=== PATIENT | female | born 1985 | race Caucasian/White ===

== ENCOUNTER 2018-10-07 21:21 | Emergency (ER) | payer OTHER ==
[~2018-10-07] VITALS: Ht 160 cm; Wt 66.8 kg
[~2018-10-07 21:21] MED LIST: ACET1TAB34 PO; ACET1TAB38 PO; ALBU6.7H IH; BENZ100C PO; IBUP-1131 PO; PRED20TA PO
--- NOTE | 2018-10-07 21:31 | ER.PDOC ---
General Chief Complaint: Requesting Medical Care Stated Complaint: RASH Time seen by MD: 21:30 Source: patient Exam Limitations: no limitations History of Present Illness Initial Comments rash for two days, started on left neck looked like pimple and now is more red and is weeping, patient also has sore throat and was exposed to strep and now has a rash on back and abdomen and arms that is itching, she took benadryl which did not help, no mer or difficulty swallowing. Allergies: Coded Allergies: amoxicillin (Verified Allergy, Unknown, 08/13/16) tramadol (Verified Allergy, Unknown, BURNING TO LIPS AND THROAT, 05/16/14) Home Meds Active Scripts Acetaminophen With Codeine (TYLENOL-COD #4 TABLET) 1 Each Tablet, 1 EACH PO TID PRN for PAIN, #20 TAB 0 Refills Prov:DILMA BRICEÑO MD 10/29/16 Benzonatate (TESSALON PERLE) 100 Mg Capsule, 100 MG PO TID for COUGH, #15 CAP 0 Refills Prov:DILMA BRICEÑO MD 10/29/16 Prednisone (PREDNISONE) 20 Mg Tablet, 40 MG PO DAILY, #8 TAB 0 Refills Prov:DILMA BRICEÑO MD 10/29/16 Albuterol Sulfate (PROVENTIL HFA) 6.7 Gm Hfa.aer.ad, 2 PUFF IH Q6HR PRN for SHORTNESS OF BREATH, #1 INHALER 1 Refill Prov:DILMA BRICEÑO MD 10/29/16 Reported Medications Ibuprofen (IBUPROFEN) 800 Mg Tablet, 800 MG PO Q8HR, TABLET 05/16/14 Past Medical History Medical History: no pertinent history Surgical History: Social History Drug Use: marijuana Constitutional: denies fever EENTM: denies eye pain Respiratory: denies cough, denies shortness of breath, denies SOB with exertion Cardiovascular: denies chest pain, denies irregular heart rate Gastrointestinal: denies abdomen distended, denies abdominal pain Genitourinary: denies dysuria, denies discharge Skin: rash Psychiatric/Neurological: denies anxiety, denies numbness Endocrine: denies excessive sweating Hematologic/Lymphatic: denies blood clots Physical Exam General Appearance: alert, no distress Skin: other Location: other Character: papular Extremities: non-tender EENT: eyes nml inspection, other Neck: trachea midline, no swelling Respiratory: no resp. distress, breath sounds nml CVS: reg. rate & rhythm, heart sounds nml Abdomen: non-tender NEURO/PSYCH: CN's nml as tested, motor nml Comments patient has what appears to be an insect bite on the left neck that is weeping and is approx the size of a quarter, no fluctuance or crepitus, she has pharyngeal erythema without signs of abscess, ant and post lymphadenopathy, there is a papular rash on her abdomen and back there is no urticaria no petechia or purpura. Departure Time of Disposition: 21:41 Disposition: HOME, SELF-CARE Impression: Primary Impression: Pharyngitis Additional Impression: Acute dermatitis Condition: Stable Patient Instructions: Contact Dermatitis, Insect Bite, Viral and Bacterial Pharyngitis Referrals: PCP,UNKNOWN (PCP) PRIMARY CARE PROVIDER Duration or Time Spent with Pa: 15 JOE BRITT MD Oct 07, 2018 21:30
[2018-10-07 21:33] VITALS: BP 114/69
--- NOTE | 2018-10-07 21:36 | NUR ---
ARRIVAL PT ARRIVED TO ED VIA POA C/O A RASH THAT STARTED TWO DAYS AGO. PT DENIES EATING ANYTHING NEW, OR INTRODUCING ANYTHING NEW INTO HER DAILY ROUTINE THAT COULD OF CAUSED THE RASH. REDNESS NOTED TO LOWER BACK, ALONG WITH A RED AREA THE SIZE OF A JUS TO LEFT SIDE OF NECK. PT STATES SHE HAS EXTREME ITCHING AND OTC MEDICINE HAS NOT HELPED.
[2018-10-07 21:56] VITALS: BP 114/69
== END 2018-10-07 21:51 | disposition home or self-care (01) ==
LOC: ER 21:21
DX: L30.9 Dermatitis, unspecified (principal); J02.9 Acute pharyngitis, unspecified; F12.10 Cannabis abuse, uncomplicated; Z88.1 Allergy status to other antibiotic agents; Z88.6 Allergy status to analgesic agent; Z79.899 Other long term (current) drug therapy
CPT/HCPCS: 99283

== ENCOUNTER 2018-10-23 19:49 | Emergency (ER) | payer OTHER ==
[~2018-10-23] VITALS: Ht 157.5 cm; Wt 68.5 kg
[2018-10-23 20:29] VITALS: BP 129/75
--- NOTE | 2018-10-23 21:41 | ER.PDOC ---
General Chief Complaint: Requesting Medical Care Stated Complaint: BODY RASH Time seen by MD: 21:27 Source: patient Exam Limitations: no limitations History of Present Illness Initial Comments Pt with rash x 1 month, started on her neck, now is diffuse. Seen x3 for this same thing, has tried multiple meds incl. steroids and creams. Timing/Duration: other (1 month) Severity: severe Location: generalized Quality: itchy Identified Cause: no Prior symptoms/Treatment: No Similar symptoms previous; Recenly Seen, Treated by Doctor; No Recently Hospitalized Allergies: Coded Allergies: amoxicillin (Verified Allergy, Unknown, 08/13/16) tramadol (Verified Allergy, Unknown, BURNING TO LIPS AND THROAT, 05/16/14) Home Meds Active Scripts Acetaminophen With Codeine (TYLENOL-COD #4 TABLET) 1 Each Tablet, 1 EACH PO TID PRN for PAIN, #20 TAB 0 Refills Prov:DILMA BRICEÑO MD 10/29/16 Benzonatate (TESSALON PERLE) 100 Mg Capsule, 100 MG PO TID for COUGH, #15 CAP 0 Refills Prov:DILMA BRICEÑO MD 10/29/16 Prednisone (PREDNISONE) 20 Mg Tablet, 40 MG PO DAILY, #8 TAB 0 Refills Prov:DILMA BRICEÑO MD 10/29/16 Albuterol Sulfate (PROVENTIL HFA) 6.7 Gm Hfa.aer.ad, 2 PUFF IH Q6HR PRN for SHORTNESS OF BREATH, #1 INHALER 1 Refill Prov:DILMA BRICEÑO MD 10/29/16 Reported Medications Ibuprofen (IBUPROFEN) 800 Mg Tablet, 800 MG PO Q8HR, TABLET 05/16/14 Past Medical History Medical History: other (shingles) Surgical History: , tubal Social History Drug Use: marijuana EENTM: no symptoms reported Cardiovascular: no symptoms reported Gastrointestinal: no symptoms reported Musculoskeletal: no symptoms reported Skin: see HPI Psychiatric/Neurological: no symptoms reported Hematologic/Lymphatic: no symptoms reported All Other Systems: Reviewed and Negative Physical Exam General Appearance: alert, no distress Skin: warm/dry, skin rash (scattered, slightly raised lesions with excoriations. Irregular in shape, with some coalescence. + easily blanching. Non -tender, with slight dry appearance) Location: generalized Character: papular With: rough texture Extremities: non-tender EENT: lips/gums nml Neck: trachea midline Respiratory: no resp. distress CVS: reg. rate & rhythm, heart sounds nml Abdomen: non-tender NEURO/PSYCH: oriented x 3 Results/Orders Results/Orders Orders - ZULEYMA DAVIDSON DO Cbc With Auto Diff (10/23/18 21:38) Comprehensive Metabolic Panel (10/23/18 21:38) C-Reactive Protein (10/23/18 21:38) Progress Progress Pt has already been on steroids, noth oral and topical, as well as Benadryl and Atarax. Will neeed skin biopsy at this point. My be pityriasis, as it began with one single spot, but does not have classic distribution for this. Pt says she will seek f/u with skin biopsy, continue her meds. Departure Time of Disposition: 22:52 Disposition: 01 HOME, SELF-CARE Impression: Primary Impression: Rash in adult Condition: Stable Referrals: DILMA BRICEÑO MD (PCP) PRIMARY CARE PROVIDER Duration or Time Spent with Pa: 25 ZULEYMA DAVIDSON DO Oct 23, 2018 21:41
[2018-10-23 21:51] LABS: BASOPHIL % 0.2 % (0.0-0.2); EOSINOPHIL # 0.4 10^3/uL (0.0-0.2); EOSINOPHIL % 3.7 % (0.0-5.0); HEMOGLOBIN 13.3 g/dL (12.0-15.0); LYMPHOCYTES # 2.2 10^3/uL (1.0-4.8); LYMPHOCYTES % 19.8 % (24.0-44.0); MEAN CELL HGB 32.5 pg (26-34); MEAN CELL HGB CONCENTRATION 33.8 g/dL (33-37); MEAN CORP VOLUME 96.3 fL (78-100); MEAN PLATELET VOLUME 10.9 fL (7.8-11.0); MONOCYTES # 0.8 10^3/uL (0.3-0.8); MONOCYTES % 7.3 % (5.0-12.0); NEUTROPHIL # 7.7 10^3/uL (1.8-7.7); NEUTROPHILS % 68.7 % (41.0-85.0); RED CELL DISTRIBUTION WIDTH 12.9 % (11.5-14.5); WHITE BLOOD CELL 11.2 10^3/uL (4.5-11.0)
[2018-10-23 22:17] LABS: CALCIUM 8.9 mg/dL (8.4-10.5); CARBON DIOXIDE 26.9 mmol/L (20.0-32)
[2018-10-23 23:06] VITALS: BP 116/72
[2018-10-23 23:39] VITALS: BP 116/72
== END 2018-10-23 23:13 | disposition home or self-care (01) ==
LOC: ER 19:49
DX: R21 Rash and other nonspecific skin eruption (principal); F12.10 Cannabis abuse, uncomplicated; Z79.899 Other long term (current) drug therapy; Z88.0 Allergy status to penicillin; Z88.8 Allergy status to other drugs, medicaments and biological substances; Z98.51 Tubal ligation status
CPT/HCPCS: 36415; 80053; 85025; 86140; 99283

== ENCOUNTER 2019-02-09 21:51 | Emergency (ER) | payer OTHER ==
[~2019-02-09] VITALS: Ht 157.5 cm; Wt 67.6 kg
[2019-02-09 22:03] VITALS: BP 117/74
[2019-02-09 23:21] VITALS: BP 122/74
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
--- NOTE | 2019-02-09 23:48 | DIREP ---
PROCEDURE:XRAY ANKLE MIN 3VWS-LT COMPARISON:None. INDICATIONS:FALL FINDINGS: BONES:No visible fracture. JOINTS:Ankle mortise symmetric. SOFT TISSUES:Normal. OTHER:No additional findings. CONCLUSION:No acute osseous or joint space abnormality seen. Dictated by: Angel Waterman M.D. on 02/09/2019 at 11:46 PM
--- NOTE | 2019-02-09 23:49 | DIREP ---
PROCEDURE:XRAY FOOT MIN 3 VWS-LT COMPARISON:[facility], , XRAY ANKLE MIN 3VWS-LT, 02/09/2019, 10:51 PM. INDICATIONS:FALL FINDINGS: BONES:No visible fracture. JOINTS:Lisfranc alignment within normal limits. SOFT TISSUES:Normal. OTHER:No additional findings. CONCLUSION:No acute osseous or joint space abnormality seen. Dictated by: Angel Waterman M.D. on 02/09/2019 at 11:47 PM
[2019-02-10] MEDS ORDERED: TORADOL IM STA (00:02)
[2019-02-10] MEDS ORDERED: TORADOL ONE (00:14)
--- NOTE | 2019-02-10 00:20 | ER.PDOC ---
General Chief Complaint: Extremities Stated Complaint: POSS BROKEN TOE Time seen by MD: 00:17 Source: patient Exam Limitations: no limitations History of Present Illness Initial Comments Left foot pain from hitting it against a couch. Onset: just prior to arrival, yesterday Where: home Severity: moderate Modifying Factors: pain on movement Allergies: Coded Allergies: latex (Verified Allergy, Severe, WHEEZING, 02/09/19) amoxicillin (Verified Allergy, Unknown, 08/13/16) tramadol (Verified Allergy, Unknown, BURNING TO LIPS AND THROAT, 05/16/14) Home Meds Active Scripts Acetaminophen With Codeine (TYLENOL-COD #4 TABLET) 1 Each Tablet, 1 EACH PO TID PRN for PAIN, #20 TAB 0 Refills Prov:DILMA BRICEÑO MD 10/29/16 Benzonatate (TESSALON PERLE) 100 Mg Capsule, 100 MG PO TID for COUGH, #15 CAP 0 Refills Prov:DILMA BRICEÑO MD 10/29/16 Prednisone (PREDNISONE) 20 Mg Tablet, 40 MG PO DAILY, #8 TAB 0 Refills Prov:DILMA BRICEÑO MD 10/29/16 Albuterol Sulfate (PROVENTIL HFA) 6.7 Gm Hfa.aer.ad, 2 PUFF IH Q6HR PRN for SHORTNESS OF BREATH, #1 INHALER 1 Refill Prov:DILMA BRICEÑO MD 10/29/16 Reported Medications Ibuprofen (IBUPROFEN) 800 Mg Tablet, 800 MG PO Q8HR, TABLET 05/16/14 Past Medical History Medical History: asthma Surgical History: LMP (females 10-50): this week Social History Smoking: non-smoker Alcohol Use: rarely Drug Use: none Review of Systems Constitutional: no symptoms reported EENTM: no symptoms reported Respiratory: no symptoms reported Cardiovascular: no symptoms reported Musculoskeletal: see HPI All Other Systems: Reviewed and Negative Physical Exam General Appearance: Alert, No Apparent Distress Foot: tenderness (left distal foot), ecchymosis Gait: limited by pain Neuro: sensation nml, motor nml Vascular: no vascular compromise Tendons: tendon function nml Leg/Knee/Thigh: uninjured above ankle Head/ENT: nml inspection, pharynx nml Neck/Back: nml inspection, non-tender Resp/CVS: no resp distress Abdomen: non-tender, no organomegaly Results/Orders Results/Orders Orders - PAM PEREZ MD Xr Foot Lt (02/09/19 22:14) Xr Ankle 3v Lt (02/09/19 22:14) Ketorolac Tromethamine (Toradol) (02/10/19 00:02) Ketorolac Tromethamine (Toradol) (02/10/19 00:14) Vital Signs Date Time Temp Pulse Resp B/P (MAP) Pulse Ox O2 Delivery O2 Flow Rate FiO2 02/09/19 22:03 98.7 80 18 99 Room Air 02/09/19 22:03 98.7 80 18 02/09/19 22:03 98.7 80 18 117/74 (88) 99 Room Air EKG/XRAY/CT/US XRAY Comments: No acute abnormality on X rays of left foot Course Sepsis Screening Results: Posi: POSITIVE SEPSIS RISK Duration or Total Time Spent w: 25 Vitals & review Data Vital Sign - Last 24 Hours 02/09/19 02/09/19 02/09/19 22:03 22:03 22:03 Temp 98.7 98.7 98.7 Pulse 80 80 80 Resp 18 18 18 B/P (MAP) 117/74 (88) Pulse Ox 99 99 O2 Delivery Room Air Room Air Sepsis Infection Criteria Pres: None O2 Sat by Pulse Oximetry: 99 Departure Time of Disposition: 00:19 Disposition: 01 HOME, SELF-CARE Impression: Primary Impression: Injury of foot, left Condition: Stable Referrals: DILMA BRICEÑO MD (PCP) PRIMARY CARE PROVIDER Additional Instructions: Ice Diclofenac F/U with PCP next week Duration or Time Spent with Pa: 45 mins Problem Qualifiers Primary Impression: Injury of foot, left Encounter type: initial encounter Qualified Codes: S99.922A - Unspecified injury of left foot, initial encounter PAM PEREZ MD Feb 10, 2019 00:20
[2019-02-10 00:30] VITALS: BP 103/65
[2019-02-10 00:42] VITALS: BP 103/65
== END 2019-02-10 00:41 | disposition home or self-care (01) ==
LOC: ER 21:51
DX: S90.32XA Contusion of left foot, initial encounter (principal); J45.909 Unspecified asthma, uncomplicated; Z79.899 Other long term (current) drug therapy; Z88.0 Allergy status to penicillin; Z91.040 Latex allergy status; Z88.6 Allergy status to analgesic agent; Z88.8 Allergy status to other drugs, medicaments and biological substances; W22.8XXA Striking against or struck by other objects, initial encounter; Y93.89 Activity, other specified; Y92.098 Other place in other non-institutional residence as the place of occurrence of the external cause; Y99.8 Other external cause status
CPT/HCPCS: 73610; 73630; 96372; 99284; J1885

== ENCOUNTER 2019-02-16 08:37 | Emergency (ER) | payer OTHER ==
[~2019-02-16] VITALS: Ht 160 cm; Wt 56.7 kg
[2019-02-16 08:42] VITALS: BP 114/76
[2019-02-16] MEDS ORDERED: MOTRIN ONE (08:43)
[2019-02-16] MEDS ORDERED: MOTRIN PO STA (08:43)
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
--- NOTE | 2019-02-16 08:56 | NUR ---
CAT SCAN PATIENT AMBULATORY TO CAT SCAN WITH FRANKI FROM RADIOLOGY.
--- NOTE | 2019-02-16 09:05 | NUR ---
CAT SCAN PATIENT BACK FROM CAT SCAN.
[2019-02-16 09:14] VITALS: BP 106/74
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
--- NOTE | 2019-02-16 09:53 | NUR ---
Pain level 2/10, no other c/o.
[2019-02-16 10:10] VITALS: BP 116/76
== END 2019-02-16 10:07 | disposition home or self-care (01) ==
LOC: EDUNIT# 08:37 → ER 08:37 → EDBD 08:37 → ER 10:07
DX: S20.219A Contusion of unspecified front wall of thorax, initial encounter (principal); S80.811A Abrasion, right lower leg, initial encounter; S80.812A Abrasion, left lower leg, initial encounter; J45.909 Unspecified asthma, uncomplicated; Z79.899 Other long term (current) drug therapy; Z88.0 Allergy status to penicillin; Z88.8 Allergy status to other drugs, medicaments and biological substances; V89.2XXA Person injured in unspecified motor-vehicle accident, traffic, initial encounter; Y92.410 Unspecified street and highway as the place of occurrence of the external cause; Y93.89 Activity, other specified; Y99.8 Other external cause status
CPT/HCPCS: 71250; 99284

== ENCOUNTER → 2019-02-19 | Outpatient (CLI) | payer OTHER ==
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
== END | disposition home or self-care (01) ==
LOC: RAD 16:10
PROVIDERS: ATTEND Nurse Practitioner Family
DX: S20.219A Contusion of unspecified front wall of thorax, initial encounter (principal); X58.XXXA Exposure to other specified factors, initial encounter; Y93.89 Activity, other specified; Y92.89 Other specified places as the place of occurrence of the external cause; Y99.8 Other external cause status
CPT/HCPCS: 71046

== ENCOUNTER 2019-03-03 23:33 | Emergency (ER) | payer OTHER ==
[~2019-03-03] VITALS: Ht 160 cm; Wt 66.7 kg
[2019-03-03] MEDS ORDERED: ZOFRAN ODT ONE (23:46)
[2019-03-03 23:54] VITALS: BP 136/72
[2019-03-04] MEDS ORDERED: TRIPLE ANTIBIOTIC OINTMENT TP ONE (00:06)
[2019-03-04] MEDS ORDERED: ADACEL VIAL IM ONE ×2 (00:07→00:30)
--- NOTE | 2019-03-04 00:14 | ER.PDOC ---
General Chief Complaint: Nausea,Vomiting,Diarrhea Stated Complaint: VOMITING,LAC ON FOOT Time seen by MD: 00:10 Source: patient Exam Limitations: no limitations History of Present Illness Initial Comments Laceration right foot and chest pain S/P fall. Patient tripped over her dog. Occurred: just prior to arrival Where: home Severity: moderate Injuries/Pain Location: chest, lower extremity Context: Tripped Loss of Consciousness: No Loss of Consciousness Associated Symptoms: chest pain Allergies: Coded Allergies: latex (Verified Allergy, Severe, WHEEZING, 02/09/19) amoxicillin (Verified Allergy, Unknown, 08/13/16) tramadol (Verified Allergy, Unknown, BURNING TO LIPS AND THROAT, 05/16/14) MEDS Active Scripts Acetaminophen With Codeine (TYLENOL-COD #4 TABLET) 1 Each Tablet, 1 EACH PO TID PRN for PAIN, #20 TAB 0 Refills Prov:DILMA BRICEÑO MD 10/29/16 Benzonatate (TESSALON PERLE) 100 Mg Capsule, 100 MG PO TID for COUGH, #15 CAP 0 Refills Prov:DILMA BRICEÑO MD 10/29/16 Prednisone (PREDNISONE) 20 Mg Tablet, 40 MG PO DAILY, #8 TAB 0 Refills Prov:DILMA BRICEÑO MD 10/29/16 Albuterol Sulfate (PROVENTIL HFA) 6.7 Gm Hfa.aer.ad, 2 PUFF IH Q6HR PRN for SHORTNESS OF BREATH, #1 INHALER 1 Refill Prov:DILMA BRICEÑO MD 10/29/16 Reported Medications Ibuprofen (IBUPROFEN) 800 Mg Tablet, 800 MG PO Q8HR, TABLET 05/16/14 Past Medical History Medical History: asthma Surgical History: other LMP (females 10-50): 3 weeks Social History Smoking: non-smoker Alcohol Use: none Drug Use: none Review of Systems Constitutional: no symptoms reported Respiratory: no symptoms reported Cardiovascular: see HPI Gastrointestinal: no symptoms reported Genitourinary: no symptoms reported Skin: see HPI All Other Systems: Reviewed and Negative Physical Exam General Appearance: No Apparent Distress, WD/WN Head: No Evidence of Injury Neck: Non-Tender, Normal Alignment, Nexus criteria neg, Normal Inspection Cardiovascular/Respiratory: Regular Rate, Rhythm, No M/R/G, Normal Peripheral Pulses, No JVD, Normal Breath Sounds, Other (upper anterior chest wall tenderness) Back: Normal Inspection, No CVA Tenderness, No Vertebral Tenderness Extremities: Normal Range of Motion, Other (laceration sole of right foot) Neurologic/Psychiatric: hose seamer II-XII NML as Tested, No Motor/Sensory Deficits, Alert, Normal Mood/Affect, Oriented x 3 [place] Coma Score Best Eye Response: (4) Open Spontaneously Best Verbal Response: (5) Oriented Best Motor Response: (6) Obeys Commands Results/Orders Results/Orders Orders - PAM PEREZ MD Xr Chest 1v (03/04/19 00:06) Diph,Pertuss(Acell),Tet Vac/Pf (Adacel V (03/04/19 00:30) Neomycin/Bacitracin/Polymyxinb (Triple A (03/04/19 00:06) Diph,Pertuss(Acell),Tet Vac/Pf (Adacel V (03/04/19 00:07) Vital Signs Date Time Temp Pulse Resp B/P (MAP) Pulse Ox O2 Delivery O2 Flow Rate FiO2 03/03/19 23:54 98.3 94 16 136/72 (93) 98 Room Air 03/03/19 23:54 98.3 94 16 03/03/19 23:54 98.3 94 16 98 Room Air 02/16/19 10:10 207.7 82 Administered Medications Medications (Trade) Dose Ordered Sig/Tanisha Route PRN Reason Start Time Stop Time Status Last Admin Dose Admin Diphtheria/ Tetanus/Acell Pertussis (Adacel Vial) 0.5 ml ONCE ONCE IM 03/04/19 00:30 03/04/19 00:32 DC 03/04/19 00:16 0.5 ML EKG/XRAY/CT/US XRAY: chest (Normal chest) Departure Time of Disposition: 00:56 Disposition: 01 HOME, SELF-CARE Impression: Primary Impression: Chest wall contusion Additional Impression: Laceration of foot Condition: Stable Referrals: DILMA BRICEÑO MD (PCP) PRIMARY CARE PROVIDER Additional Instructions: Clean wound daily with soap and water and apply Neosporin Keflex Ibuprofen F/U with your PCP next week Duration or Time Spent with Pa: 45 mins Problem Qualifiers Primary Impression: Chest wall contusion Encounter type: initial encounter Laterality: unspecified laterality Qualified Codes: S20.219A - Contusion of unspecified front wall of thorax, initial encounter Additional Impression: Laceration of foot Encounter type: initial encounter Laterality: right Qualified Codes: S91.311A - Laceration without foreign body, right foot, initial encounter PAM PEREZ MD Mar 04, 2019 00:14
--- NOTE | 2019-03-04 00:15 | NUR ---
LACERATION NEOSPORIN AND BANDAID APPLIED TO LACERATION ON RIGHT FOOT PER REQUEST OF MD CHRIS.
--- NOTE | 2019-03-04 00:53 | DIREP ---
PROCEDURE:CHEST 1 VIEW COMPARISON:None. INDICATIONS:Inury S/P fall FINDINGS: LUNGS/PLEURA:No significant pulmonary parenchymal abnormalities. No effusions. VASCULATURE:Normal. Unremarkable pulmonary vasculature. CARDIAC:Normal. No cardiac silhouette abnormality or cardiomegaly. MEDIASTINUM:Normal. No visible mass or adenopathy. BONES:Normal. No fracture or visible bony lesion. OTHER:Negative. CONCLUSION: 1. Normal chest. Dictated by: Sean Jaramillo M.D. on 03/04/2019 at 00:52 AM
[2019-03-04] MEDS ORDERED: ZOFRAN ODT SL STA (00:58)
[2019-03-04 01:02] VITALS: BP 109/66
== END 2019-03-04 01:00 | disposition home or self-care (01) ==
LOC: ER 23:33
DX: S91.311A Laceration without foreign body, right foot, initial encounter (principal); S20.219A Contusion of unspecified front wall of thorax, initial encounter; J45.909 Unspecified asthma, uncomplicated; Z79.891 Long term (current) use of opiate analgesic; Z79.1 Long term (current) use of non-steroidal anti-inflammatories (NSAID); Z79.899 Other long term (current) drug therapy; Z91.040 Latex allergy status; Z88.1 Allergy status to other antibiotic agents; Z88.5 Allergy status to narcotic agent; W01.0XXA Fall on same level from slipping, tripping and stumbling without subsequent striking against object, initial encounter; Y93.89 Activity, other specified; Y92.098 Other place in other non-institutional residence as the place of occurrence of the external cause; Y99.8 Other external cause status
CPT/HCPCS: 71045; 90471; 90715; 99283; Q0162

== ENCOUNTER → 2019-03-12 | Outpatient (CLI) | payer OTHER ==
--- NOTE | 2019-03-12 13:47 | DIREP ---
PROCEDURE:XR SPINE CERVICAL 2 OR 3 VIEWS COMPARISON:None. INDICATIONS:NECK PAIN TECHNIQUE:AP, lateral, and dens views of the cervical spine are provided. FINDINGS: ALIGNMENT:Loss of the cervical lordosis. VERTEBRAE:Normal. DISK SPACES:Normal. CERVICAL RIBS:None. OTHER:Normal. CONCLUSION:Loss of cervical lordosis. Otherwise normal examination. Dictated by: Damien Gonzalez M.D. on 03/12/2019 at 01:46 PM
--- NOTE | 2019-03-12 13:49 | DIREP ---
PROCEDURE:XRAY SPINE THORACIC 3 VWS COMPARISON:[facility], CR, XRAY CHEST 2 VWS, 02/19/2019, 04:01 PM. INDICATIONS:MID BACK PAIN TECHNIQUE:AP & lateral views of the thoracic spine and a swimmer's view of the cervicothoracic junction are provided. FINDINGS: ALIGNMENT:Normal. VERTEBRAE:Normal. DISK SPACES:Normal. OTHER:Normal. CONCLUSION:Normal examination. Dictated by: Damien Gonzalez M.D. on 03/12/2019 at 01:47 PM
== END | disposition home or self-care (01) ==
LOC: RAD 11:16
PROVIDERS: ATTEND Nurse Practitioner Family
DX: S16.1XXA Strain of muscle, fascia and tendon at neck level, initial encounter (principal); M54.6 Pain in thoracic spine; X58.XXXA Exposure to other specified factors, initial encounter; Y93.89 Activity, other specified; Y92.89 Other specified places as the place of occurrence of the external cause; Y99.8 Other external cause status
CPT/HCPCS: 72040; 72072

== ENCOUNTER 2019-04-26 20:06 | Emergency (ER) | payer OTHER ==
[~2019-04-26] VITALS: Ht 157.5 cm; Wt 65.8 kg
[~2019-04-26 20:06] MED LIST changes: -ALBU6.7H IH; +ALBU6.7H8 IH
--- NOTE | 2019-04-26 20:06 | NUR ---
ARRIVAL: 33 YEAR OLD FEMALE AMBULATES INTO ER C/O HEADACHE THAT STARTED 3 DAYS AGO.
[2019-04-26 20:32] VITALS: BP 137/60
[2019-04-26 20:33] VITALS: BP 137/60
[2019-04-26] MEDS ORDERED: BENADRYL IM STA (20:41)
[2019-04-26] MEDS ORDERED: COMPAZINE IM STA (20:41)
[2019-04-26] MEDS ORDERED: BENADRYL ONE (20:44)
[2019-04-26] MEDS ORDERED: COMPAZINE ONE (20:45)
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
== END 2019-04-26 21:00 | disposition home or self-care (01) ==
LOC: ER 20:06
DX: H00.014 Hordeolum externum left upper eyelid (principal); R51 Headache; Z79.899 Other long term (current) drug therapy; Z88.0 Allergy status to penicillin; Z88.8 Allergy status to other drugs, medicaments and biological substances; Z91.040 Latex allergy status
CPT/HCPCS: 96372; 99284; J0780; J1200

== ENCOUNTER 2019-06-08 21:09 | Emergency (ER) | payer OTHER ==
[~2019-06-08] VITALS: Ht 157.5 cm; Wt 67.1 kg
[2019-06-08 21:46] VITALS: BP 134/70
--- NOTE | 2019-06-08 22:04 | ER.PDOC ---
General Chief Complaint: Requesting Medical Care Stated Complaint: POSS INSECT BITE,DIFF BREATHING,NECK PAIN Time seen by MD: 22:03 Source: patient Exam Limitations: no limitations History of Present Illness Initial Comments 33 Y/O F WITH HX BITE TO RIGHT SHOULDER THIS AM, NOW WITH SOB AND WHEEZING. HX OF ASTHMA, NO FEVER, NO N/V/D, NO OTHER COMPLAINTS. Timing/Duration: other Severity: moderate Location: RUE Quality: itchy Identified Cause: no Prior symptoms/Treatment: Similar symptoms previous Allergies: Coded Allergies: latex (Verified Allergy, Severe, WHEEZING, 02/09/19) amoxicillin (Verified Allergy, Unknown, 08/13/16) tramadol (Verified Allergy, Unknown, BURNING TO LIPS AND THROAT, 05/16/14) Home Meds Active Scripts Acetaminophen With Codeine (TYLENOL-COD #4 TABLET) 1 Each Tablet, 1 EACH PO TID PRN for PAIN, #20 TAB 0 Refills Prov:DILMA BRICEÑO MD 10/29/16 Benzonatate (TESSALON PERLE) 100 Mg Capsule, 100 MG PO TID for COUGH, #15 CAP 0 Refills Prov:DILMA BRICEÑO MD 10/29/16 Prednisone (PREDNISONE) 20 Mg Tablet, 40 MG PO DAILY, #8 TAB 0 Refills Prov:DILMA BRICEÑO MD 10/29/16 Albuterol Sulfate (PROVENTIL HFA) 6.7 Gm Hfa.aer.ad, 2 PUFF IH Q6HR PRN for SHORTNESS OF BREATH, #1 INHALER 1 Refill Prov:DILMA BRICEÑO MD 10/29/16 Reported Medications Ibuprofen (IBUPROFEN) 800 Mg Tablet, 800 MG PO Q8HR, TABLET 05/16/14 Past Medical History Medical History: no pertinent history, asthma Surgical History: Family History Significant Family History: no pertinent family hx Social History Smoking: non-smoker Alcohol Use: none Drug Use: none Reviewed Nursing Reviewed: Vital Signs, Abn. Noted, Nursing Assessment Constitutional: no symptoms reported EENTM: no symptoms reported Respiratory: see HPI, wheezing Cardiovascular: no symptoms reported Gastrointestinal: no symptoms reported Genitourinary: no symptoms reported Musculoskeletal: no symptoms reported Skin: rash Psychiatric/Neurological: no symptoms reported Endocrine: no symptoms reported Hematologic/Lymphatic: no symptoms reported Physical Exam General Appearance: alert, no distress Skin: warm/dry, nml color, skin rash, other Location: RUE Character: urticarial With: well defined boarders Extremities: non-tender, nml ROM, no edema EENT: eyes nml inspection, lips/gums nml, pharynx nml Neck: trachea midline, no swelling Respiratory: no resp. distress, breath sounds nml, wheezes CVS: reg. rate & rhythm, heart sounds nml Abdomen: non-tender, no organomegaly Rectal: non-tender NEURO/PSYCH: oriented x 3, CN's nml as tested, motor nml, sensation nml, mood/affect nml Comments RIGHT UPPER ARM NOTED SITE OF URTICARIA, NO FB, DOES NOT LOOK LIKE CELLULITIS. Results/Orders Results/Orders Orders - NING CLAY DO Diphenhydramine Hcl (Benadryl) (06/08/19 22:07) Ipratropium/Albuterol Sulfate (Duo 0.5-3 (06/08/19 22:07) Methylprednisolone Sod Succ (Solu-Medrol (06/08/19 22:07) Famotidine/Pf (Pepcid) (06/08/19 22:07) Ipratropium/Albuterol Sulfate (Duo 0.5-3 (06/08/19 22:13) Famotidine/Pf (Pepcid) (06/08/19 22:13) Diphenhydramine Hcl (Benadryl) (06/08/19 22:14) Methylprednisolone Sod Succ (Solu-Medrol (06/08/19 22:14) Vital Signs Date Time Temp Pulse Resp B/P (MAP) Pulse Ox O2 Delivery O2 Flow Rate FiO2 06/08/19 22:18 77 20 99 Administered Medications Medications (Trade) Dose Ordered Sig/Tanisha Route PRN Reason Start Time Stop Time Status Last Admin Dose Admin Albuterol/ Ipratropium (Duo 0.5-3(2.5) Mg/3 ml) 3 ml STAT STAT IH 06/08/19 22:07 06/08/19 22:10 DC 06/08/19 22:17 3 ML Diphenhydramine HCl (Benadryl) 25 mg STAT STAT IV 06/08/19 22:07 06/08/19 22:10 DC 06/08/19 22:21 25 MG Famotidine (Pepcid) 20 mg STAT STAT IV 06/08/19 22:07 06/08/19 22:10 DC 06/08/19 22:21 20 MG Methylprednisolone Sodium Succinate (Solu-Medrol) 125 mg STAT STAT IV 06/08/19 22:07 06/08/19 22:10 DC 06/08/19 22:21 125 MG Progress Progress AT [facility], FEELS MUCH BETTER, WANTS TO GO HOME, DIFF DX IN DETAIL, AT D/C LUNGS- CTA, RIGHT SHOULDER RASH NEAR GONE. Departure Time of Disposition: 22:59 Disposition: 01 HOME, SELF-CARE Impression: Primary Impression: Asthma with acute exacerbation Additional Impressions: Insect bite Urticaria Condition: Stable Patient Instructions: Asthma Attacks, Prevention, Insect Bite Referrals: DILMA BRICEÑO MD (PCP) PRIMARY CARE PROVIDER Additional Instructions: TO ED NEEDED OR IF WORSE, FOLLOW UP WITH YOUR DR, BREATHING TREATMENTS EVERY 6 HRS AND NEEDED. RX PREDNISONE, OTC PEPCID AND BENADRYL NEEDED. Duration or Time Spent with Pa: 20 MIN Problem Qualifiers NING CLAY DO Jun 08, 2019 22:04
[2019-06-08] MEDS ORDERED: BENADRYL IV STA (22:07)
[2019-06-08] MEDS ORDERED: PEPCID IV STA (22:07)
[2019-06-08] MEDS ORDERED: DUO 0.5-3(2.5) MG/3 ML IH STA (22:07)
[2019-06-08] MEDS ORDERED: SOLU-MEDROL IV STA (22:07)
[2019-06-08] MEDS ORDERED: PEPCID IV ONE (22:13)
[2019-06-08] MEDS ORDERED: DUO 0.5-3(2.5) MG/3 ML IH ONE (22:13)
[2019-06-08] MEDS ORDERED: SOLU-MEDROL ONE (22:14)
[2019-06-08] MEDS ORDERED: BENADRYL ONE (22:14)
[2019-06-08 23:13] VITALS: BP 125/67
== END 2019-06-08 23:20 | disposition home or self-care (01) ==
LOC: ER 21:09
DX: S40.261A Insect bite (nonvenomous) of right shoulder, initial encounter (principal); L50.9 Urticaria, unspecified; J45.901 Unspecified asthma with (acute) exacerbation; Z79.1 Long term (current) use of non-steroidal anti-inflammatories (NSAID); Z79.899 Other long term (current) drug therapy; Z88.0 Allergy status to penicillin; Z88.8 Allergy status to other drugs, medicaments and biological substances; Z91.040 Latex allergy status; W57.XXXA Bitten or stung by nonvenomous insect and other nonvenomous arthropods, initial encounter; Y93.89 Activity, other specified; Y92.89 Other specified places as the place of occurrence of the external cause; Y99.8 Other external cause status
CPT/HCPCS: 94640; 96374; 96375; 99284; J1200; J2930; J3490; J7620

== ENCOUNTER 2019-06-11 09:39 | Emergency (ER) | payer OTHER ==
[~2019-06-11] VITALS: Ht 157.5 cm; Wt 67.1 kg
[2019-06-11 09:39] VITALS: BP 135/66
--- NOTE | 2019-06-11 09:39 | NUR ---
ARRIVAL: 33 YEAR OLD FEMALE PRESENTS TO ER C/O SOB. HX OF ASTHMA.
--- NOTE | 2019-06-11 09:55 | NUR ---
UPDATE: RT AT BEDSIDE, HOB ELEVATED. EXPIRATORY WHEEZES HEARD THROUGHOUT. KENALOG 40 IM, EPI 0.3 IM AND ATIVAN 2 MG PO.
--- NOTE | 2019-06-11 09:58 | PCM.EKG ---
[facility] Test Date: 2019-06-11 Test Time: 09:57:34 Pat Name: SAGE CARRION Department: Room: Gender: F Galley Boy: BRIJESH : 1985 Requested By: ANGEL MURPHY Order Number: [id number] Reading MD: Angel Murphy Measurements Intervals [place] Rate: 94 P: 61 FL: 161 QRS: 78 QRSD: 120 T: 64 QT: 361 QTc: 452 Interpretive Statements Sinus rhythm Nonspecific intraventricular conduction delay No previous ECG available for comparison Electronically Signed On 06-13-2019 9:59:15 LABORATORY ADMINISTRATIVE DIRECTOR by Angel Murphy Please click the below link to view image of tracing.
[2019-06-11] MEDS ORDERED: DUO 0.5-3(2.5) MG/3 ML IH ONE (09:59)
[2019-06-11] MEDS ORDERED: DECADRON ONE (09:59)
[2019-06-11] MEDS ORDERED: EPINEPHrine ONE (10:03)
[2019-06-11] MEDS ORDERED: KENALOG-40 ONE (10:04)
[2019-06-11] MEDS ORDERED: ATIVAN ONE (10:05)
--- NOTE | 2019-06-11 10:07 | ER.PDOC ---
General Chief Complaint: Cough/Congestion Stated Complaint: SOB Time seen by MD: 10:00 Source: patient Exam Limitations: no limitations History of Present Illness Timing/Duration: 1 week Severity: mild Associated Symptoms: trouble breathing, hurts to breath, cough, central chest discomfort Medication Course: taking brief course Prior symptoms/Treatment: Similar symptoms previous Allergies: Coded Allergies: latex (Verified Allergy, Severe, WHEEZING, 02/09/19) amoxicillin (Verified Allergy, Unknown, 08/13/16) tramadol (Verified Allergy, Unknown, BURNING TO LIPS AND THROAT, 05/16/14) Home Meds Active Scripts Acetaminophen With Codeine (TYLENOL-COD #4 TABLET) 1 Each Tablet, 1 EACH PO TID PRN for PAIN, #20 TAB 0 Refills Prov:DILMA BRICEÑO MD 10/29/16 Benzonatate (TESSALON PERLE) 100 Mg Capsule, 100 MG PO TID for COUGH, #15 CAP 0 Refills Prov:DILMA BRICEÑO MD 10/29/16 Prednisone (PREDNISONE) 20 Mg Tablet, 40 MG PO DAILY, #8 TAB 0 Refills Prov:DILMA BRICEÑO MD 10/29/16 Albuterol Sulfate (PROVENTIL HFA) 6.7 Gm Hfa.aer.ad, 2 PUFF IH Q6HR PRN for SH ORTNESS OF BREATH, #1 INHALER 1 Refill Prov:DILMA BRICEÑO MD 10/29/16 Reported Medications Ibuprofen (IBUPROFEN) 800 Mg Tablet, 800 MG PO Q8HR, TABLET 05/16/14 Past Medical History Medical History: asthma Surgical History: LMP (females 10-50): 2 WEEKS Social History Smoking: secondhand Alcohol Use: occassionally Drug Use: none Reviewed Nursing Reviewed: Vital Signs, Abn. Noted All Other Systems: Reviewed and Negative Physical Exam General Appearance: alert, no distress, anxious EENT: eyes nml, no nystagmus, ENT nml inspection, pharynx nml Neck: nml inspection, non-tender Respiratory: rhonchi Cardiovascular: Normal Peripheral Pulses, Regular Rate, Rhythm, No Edema, No Gallop, No JVD, No Murmur Abdomen: non-tender, no organomegaly Skin: Normal Color, Warm/Dry Extremities: non-tender, nml ROM, no pedal edema NEURO/PSYCH: oriented x 3, CN's nml as tested, motor nml, sensation nml, mood/affect nml Results/Orders Results/Orders Orders - RUSSELL MURPHY MD Cbc With Auto Diff (06/11/19 09:55) Comprehensive Metabolic Panel (06/11/19 09:55) Creatine Kinase (06/11/19 09:55) Creatine Kinase Mb (06/11/19 09:55) Troponin I (06/11/19 09:55) Probnp B-Type Data Clerk (06/11/19 09:55) PT (06/11/19 09:55) Partial Thromboplastin Time. (06/11/19 09:55) D-Dimer (06/11/19 09:55) Ekg-Routine (06/11/19 09:55) Xr Chest 2v (06/11/19 09:55) Hcg Qualitative Serum (06/11/19 09:55) Epinephrine (Epinephrine) (06/11/19 09:58) Triamcinolone Acetonide (Kenalog-40) (06/11/19 10:00) Ipratropium/Albuterol Sulfate (Duo 0.5-3 (06/11/19 09:59) Dexamethasone Sodium Phosphate (Decadron (06/11/19 09:59) Lorazepam (Ativan) (06/11/19 10:00) Epinephrine (Epinephrine) (06/11/19 10:03) Ipratropium/Albuterol Sulfate (Duo 0.5-3 (06/11/19 10:04) Dexamethasone Sodium Phosphate (Decadron (06/11/19 10:04) Vital Signs Date Time Temp Pulse Resp B/P (MAP) Pulse Ox O2 Delivery O2 Flow Rate FiO2 06/11/19 09:39 97.7 72 18 100 Room Air 06/11/19 09:39 97.7 72 16 06/11/19 09:39 97.7 72 16 135/66 (89) 100 Room Air EKG/XRAY/CT/US EKG: NSR, no ST T wave changes Consult/PCP Time Consult/PCP Called: 14:22 Consult/PCP: dr mckeon Departure Time of Disposition: 14:00 Disposition: ADMITTED INPATIENT Impression: Primary Impression: Asthma with acute exacerbation Additional Impression: Anxiety Condition: Improved Referrals: DILMA BRICEÑO MD (PCP) PRIMARY CARE PROVIDER Duration or Time Spent with Pa: 1 hr Problem Qualifiers RUSSELL MURPHY MD Jun 11, 2019 10:07
[2019-06-11 10:08] LABS: BASOPHIL % 0.3 % (0.0-0.2); EOSINOPHIL % 0.4 % (0.0-5.0); HEMOGLOBIN 14.8 g/dL (12.0-15.0); LYMPHOCYTES # 4.3 10^3/uL (1.0-4.8); LYMPHOCYTES % 39.8 % (24.0-44.0); MEAN CELL HGB 32.5 pg (26-34); MEAN CELL HGB CONCENTRATION 33.7 g/dL (33-37); MEAN CORP VOLUME 96.3 fL (78-100); MEAN PLATELET VOLUME 10.8 fL (7.8-11.0); MONOCYTES # 0.8 10^3/uL (0.3-0.8); MONOCYTES % 7.3 % (5.0-12.0); NEUTROPHIL # 5.6 10^3/uL (1.8-7.7); NEUTROPHILS % 51.8 % (41.0-85.0); WHITE BLOOD CELL 10.8 10^3/uL (4.5-11.0)
[2019-06-11] MEDS: DECADRON IH STA (10:08)
[2019-06-11] MEDS: DUO 0.5-3(2.5) MG/3 ML IH STA (10:09)
[2019-06-11] MEDS: EPINEPHrine IM STA (10:15)
[2019-06-11] MEDS: ATIVAN PO STA (10:15)
[2019-06-11] MEDS: KENALOG-40 IM ONE (10:15)
[2019-06-11 10:17] VITALS: BP 146/91
[2019-06-11 10:33] LABS: ALANINE AMINOTRANSFERASE(ML) 47 U/L (12-78); ALKALINE PHOSPHATASE 75 U/L (50-136); ASPARTATE AMINO TRANSFERASE 29 U/L (0-35); CALCIUM 9.3 mg/dL (8.4-10.5); CARBON DIOXIDE 22.1 mmol/L (20.0-32); GLUCOSE 94 mg/dL (70-110)
--- NOTE | 2019-06-11 10:42 | DIREP ---
PROCEDURE:CHEST 2 VIEWS COMPARISON:[facility], CR, XRAY CHEST SINGLE VW, 03/04/2019, 00:00 AM. INDICATIONS:ASTMA EXACERBATION, CP FINDINGS: LUNGS/PLEURA:No significant pulmonary parenchymal abnormalities. No effusions. VASCULATURE:Normal. Unremarkable pulmonary vasculature. CARDIAC:Normal. No cardiac silhouette abnormality or cardiomegaly. MEDIASTINUM:Normal. No visible mass or adenopathy. BONES:Normal. No fracture or visible bony lesion. OTHER:Negative. CONCLUSION:Normal examination. Dictated by: Zain Shannon M.D. on 06/11/2019 at 10:40 AM
[2019-06-11 11:00] VITALS: BP 132/88
[2019-06-11] MEDS ORDERED: TORADOL ONE (12:11)
[2019-06-11] MEDS ORDERED: NORCO 10MG PO ONE (12:12)
[2019-06-11 12:14] VITALS: BP 133/76
[2019-06-11] MEDS: NORCO 10MG PO STA (12:22)
[2019-06-11] MEDS: TORADOL IV STA (12:22)
[2019-06-11] MEDS ORDERED: VENTOLIN IH ONE (12:24)
[2019-06-11] MEDS: TORADOL IM ONE (12:25)
[2019-06-11] MEDS: VENTOLIN IH STA (12:33)
--- NOTE | 2019-06-11 13:09 | NUR ---
HOSPITALIST DR MURPHY ON PHONE WITH DR DAN.
== END 2019-06-11 15:50 | disposition home or self-care (01) ==
LOC: ER 09:39
DX: J45.901 Unspecified asthma with (acute) exacerbation (principal); F41.9 Anxiety disorder, unspecified; Z77.22 Contact with and (suspected) exposure to environmental tobacco smoke (acute) (chronic); Z88.6 Allergy status to analgesic agent; Z91.040 Latex allergy status; Z88.1 Allergy status to other antibiotic agents
CPT/HCPCS: 36415; 71046; 80053; 82550; 82553; 83880; 84484; 84703; 85025; 85379; 85610; 85730; 93005; 94640 ×2; 96372; 99285; J0171; J1100; J1885; J3301; J7613; J7620

== ENCOUNTER 2019-07-23 18:17 | Emergency (ER) | payer OTHER ==
[~2019-07-23] VITALS: Ht 157.5 cm; Wt 65.8 kg
[2019-07-23 18:45] VITALS: BP 118/75
[2019-07-23] MEDS ORDERED: DICY10AM IM (19:18)
[2019-07-23] MEDS ORDERED: PROM25TA10 PO (19:18)
--- NOTE | 2019-07-23 19:18 | ER.PDOC ---
General Chief Complaint: Requesting Medical Care Stated Complaint: N/V/D Time seen by MD: 19:00 Source: patient Exam Limitations: no limitations History of Present Illness Initial Comments nausea and vomiting and diarrhea x 3 days Severity/Quality: moderate Abdominal Pain Onset Location: Other Associated Symptoms (vomiting): freq vomitng Associated Symptoms (diarrhea): mild Allergies: Coded Allergies: latex (Verified Allergy, Severe, WHEEZING, 02/09/19) amoxicillin (Verified Allergy, Unknown, 08/13/16) tramadol (Verified Allergy, Unknown, BURNING TO LIPS AND THROAT, 05/16/14) Home Meds Active Scripts Promethazine Hcl (PROMETHAZINE HCL) 25 Mg Tablet, 25 MG PO Q8HR PRN for vomiting for 5 Days, #15 TAB 0 Refills Prov:TRIMMIERCARLOSSARIKA A INVESTIGATIVE ANALYST 07/23/19 Dicyclomine Hcl (BENTYL) 10 Mg/1 Ml Ampul, 10 MG IM TID PRN for DIARRHEA for 5 Days, #15 TABLET 0 Refills Prov:ASUNCIONERSARIKA INVESTIGATIVE ANALYST 07/23/19 Acetaminophen With Codeine (TYLENOL-COD #4 TABLET) 1 Each Tablet, 1 EACH PO TID PRN for PAIN, #20 TAB 0 Refills Prov:DILMA BRICEÑO MD 10/29/16 Benzonatate (TESSALON PERLE) 100 Mg Capsule, 100 MG PO TID for COUGH, #15 CAP 0 Refills Prov:DILMA BRICEÑO MD 10/29/16 Prednisone (PREDNISONE) 20 Mg Tablet, 40 MG PO DAILY, #8 TAB 0 Refills Prov:DILMA BRICEÑO MD 10/29/16 Albuterol Sulfate (PROVENTIL HFA) 6.7 Gm Hfa.aer.ad, 2 PUFF IH Q6HR PRN for SHORTNESS OF BREATH, #1 INHALER 1 Refill Prov:DILMA BRICEÑO MD 10/29/16 Reported Medications Ibuprofen (IBUPROFEN) 800 Mg Tablet, 800 MG PO Q8HR, TABLET 05/16/14 Vital Signs First Vital Signs Date Time Temp Pulse Resp B/P (MAP) Pulse Ox O2 Delivery O2 Flow Rate FiO2 07/23/19 18:45 98.8 98 18 100 Last Vital Signs Date Time Temp Pulse Resp B/P (MAP) Pulse Ox O2 Delivery O2 Flow Rate FiO2 07/23/19 18:45 98.8 98 18 100 Past Medical History Medical History: asthma Surgical History: Social History Drug Use: none Constitutional: fever, malaise EENTM: no symptoms reported Respiratory: no symptoms reported Cardiovascular: no symptoms reported Gastrointestinal: diarrhea, nausea, vomiting All Other Systems: Reviewed and Negative Physical Exam General Appearance: Moderate Distress HEENT: Normal ENT Inspection Neck: Non-Tender Respiratory: chest non-tender Cardiovascular: Regular Rate, Rhythm Gastrointestinal: Non Tender, Soft Skin: Normal Color Results/Orders Results/Orders Orders - SARIKA SAVAGE NP Influenza A&B (07/23/19 19:09) Vital Signs Date Time Temp Pulse Resp B/P (MAP) Pulse Ox O2 Delivery O2 Flow Rate FiO2 07/23/19 18:45 98.8 98 18 100 Laboratory Tests Test 07/23/19 19:14 Influenza Type A Antigen NEGATIVE (NEG) Influenza B Immunofluorescence NEGATIVE (NEG) Departure Time of Disposition: 19:12 Disposition: HOME, SELF-CARE Impression: Primary Impression: Vomiting Additional Impression: Diarrhea Condition: Stable Patient Instructions: Nausea and Vomiting, [id number] Referrals: DILMA BRICEÑO MD (PCP) PRIMARY CARE PROVIDER Additional Instructions: Return if symptoms worsen. See PCP as needed Scripts Promethazine Hcl (PROMETHAZINE HCL) 25 Mg Tablet 25 MG PO Q8HR PRN for vomiting for 5 Days, #15 TAB 0 Refills Prov: SARIKA SAVAGE NP 07/23/19 Dicyclomine Hcl (BENTYL) 10 Mg/1 Ml Ampul 10 MG IM TID PRN for DIARRHEA for 5 Days, #15 TABLET 0 Refills Prov: SARIKA SAVAGE NP 07/23/19 Duration or Time Spent with Pa: 18 minutes Return to Work/School Can a patient return to work?: No Can a patient return to school: No Problem Qualifiers SARIKA SAVAGE NP Jul 23, 2019 19:18
== END 2019-07-23 19:38 | disposition home or self-care (01) ==
LOC: ER 18:17
DX: R11.2 Nausea with vomiting, unspecified (principal); J45.909 Unspecified asthma, uncomplicated; R10.9 Unspecified abdominal pain; R19.7 Diarrhea, unspecified; Z79.1 Long term (current) use of non-steroidal anti-inflammatories (NSAID); Z79.899 Other long term (current) drug therapy; Z88.0 Allergy status to penicillin; Z88.5 Allergy status to narcotic agent; Z88.8 Allergy status to other drugs, medicaments and biological substances
CPT/HCPCS: 87804; 99284

== ENCOUNTER → 2019-11-20 | Outpatient (CLI) | payer OTHER ==
[~2019-11-20] MED LIST changes: +DICY10AM IM; +PROM25TA10 PO
== END | disposition home or self-care (01) ==
LOC: NPLAB 08:00 → EDSTATUS 12-04 15:48
PROVIDERS: ATTEND Nurse Practitioner Adult Health
DX: Z03.818 Encounter for observation for suspected exposure to other biological agents ruled out (principal)
CPT/HCPCS: 87635; C9803

== ENCOUNTER 2020-08-24 20:21 | Emergency (ER) | payer OTHER ==
[~2020-08-24] VITALS: Ht 157.5 cm; Wt 77.1 kg
[2020-08-24 20:30] VITALS: BP 117/71
[2020-08-24] MEDS ORDERED: SOLU-MEDROL IV STA (20:46)
[2020-08-24] MEDS ORDERED: DUO 0.5-3(2.5) MG/3 ML IH STA (20:46)
--- NOTE | 2020-08-24 20:49 | ER.PDOC ---
General Chief Complaint: Dyspnea/Respdistress Stated Complaint: SOB Time seen by MD: 20:46 Source: patient Exam Limitations: no limitations History of Present Illness Initial Comments 34-year-old white female comes in with complaint of her asthma flaring up again. She has had asthma literally for 30 years. She was last on steroids 6 to 8 weeks ago. She states that this exacerbation started yesterday and has gotten dramatically worse today. Patient does both albuterol and duo nebs at home. She has been DuoNeb every 4 hours throughout the day. She came in [facility] mainly to get started on the steroids. She does not want admitted at this time. I did offer admission if she felt like she needed it and she declines. She requests the Solu-Medrol and sent her home with a tapering dose of prednisone. She assures me that she knows her disease and she will be in when she feels like she has to be admitted.She did admit that last time she was in the hospital for asthma exacerbation she did requireHeliox therapy with her nebulizer treatments. Timing/Duration: 24 hours Severity: severe Activities at Onset: rest Prior Episodes/Possible Cause: frequent episodes Modifying Factors: improves with albuterol nebulizer Associated Symptoms: denies symptoms Prior symptoms/Treatment: Similar symptoms previous Allergies: Coded Allergies: latex (Verified Allergy, Severe, WHEEZING, 02/09/19) amoxicillin (Verified Allergy, Unknown, 08/13/16) tramadol (Verified Allergy, Unknown, BURNING TO LIPS AND THROAT, 05/16/14) Home Meds Active Scripts Promethazine Hcl (PROMETHAZINE HCL) 25 Mg Tablet, 25 MG PO Q8HR PRN for vomiting for 5 Days, #15 TAB 0 Refills Prov:TRIMMIER,SARIKA A SENIOR FINANCIAL CONSULTANT 07/23/19 Dicyclomine Hcl (BENTYL) 10 Mg/1 Ml Ampul, 10 MG IM TID PRN for DIARRHEA for 5 Days, #15 TABLET 0 Refills Prov:TRIMMIER,SARIKA A SENIOR FINANCIAL CONSULTANT 07/23/19 Acetaminophen With Codeine (TYLENOL-COD #4 TABLET) 1 Each Tablet, 1 EACH PO TID PRN for PAIN, #20 TAB 0 Refills Prov:DILMA BRICEÑO MD 10/29/16 Benzonatate (TESSALON PERLE) 100 Mg Capsule, 100 MG PO TID for COUGH, #15 CAP 0 Refills Prov:DILMA BRICEÑO MD 10/29/16 Prednisone (PREDNISONE) 20 Mg Tablet, 40 MG PO DAILY, #8 TAB 0 Refills Prov:DILMA BRICEÑO MD 10/29/16 Albuterol Sulfate (PROVENTIL HFA) 6.7 Gm Hfa.aer.ad, 2 PUFF IH Q6HR PRN for SHORTNESS OF BREATH, #1 INHALER 1 Refill Prov:DILMA BRICEÑO MD 10/29/16 Reported Medications Ibuprofen (IBUPROFEN) 800 Mg Tablet, 800 MG PO Q8HR, TABLET 05/16/14 Past Medical History Medical History: asthma Surgical History: no surgical history Family History Significant Family History: asthma, other (house full of smokers) Social History Alcohol Use: none Drug Use: none Review of Systems Respiratory: see HPI All Other Systems: Reviewed and Negative Physical Exam General Appearance: WD/WN, Mild Distress HEENT: PERRL/EOMI, Normal ENT Inspection, TMs Normal, Pharynx Normal Neck: Non-Tender, Full Range of Motion, Supple, Normal Inspection Respiratory: chest non-tender, accessory muscle use, prolonged expirations, wheezing, other (mild resp distress) Cardiovascular: Normal Peripheral Pulses, Regular Rate, Rhythm, No Edema, No Gallop, No JVD, No Murmur Gastrointestinal: Normal Bowel Sounds, No Organomegaly, No Pulsatile Mass, Non Tender, Soft Extremities: Normal Range of Motion, Non-Tender, Normal Inspection, No Pedal Edema, No Calf Tenderness, Normal Capillary Refill Neurologic/Psychiatric: network associate II-XII NML as Tested, No Motor/Sensory Deficits, Alert, Normal Mood/Affect, Oriented x 3 Skin: Normal Color, Warm/Dry Lymphatic: No Adenopathy Results/Orders Results/Orders Orders - YUNIOR GONZALEZ MD Ipratropium/Albuterol Sulfate (Duo 0.5-3 (08/24/20 20:46) Methylprednisolone Sod Succ (Solu-Medrol (08/24/20 20:46) Xr Chest 1v (08/24/20 20:46) Vital Signs Date Time Temp Pulse Resp B/P (MAP) Pulse Ox O2 Delivery O2 Flow Rate FiO2 08/24/20 20:30 98.2 86 20 100 08/24/20 20:30 98.2 86 20 08/24/20 20:30 98.2 86 20 117/71 (86) 100 Room Air Administered Medications Medications (Trade) Dose Ordered Sig/Tanisha Route PRN Reason Start Time Stop Time Status Last Admin Dose Admin Albuterol/ Ipratropium (Duo 0.5-3(2.5) Mg/3 ml) 3 ml STAT STAT IH 08/24/20 20:46 08/24/20 20:47 UNV 08/24/20 20:46 3 ML Methylprednisolone Sodium Succinate (Solu-Medrol) 125 mg STAT STAT IV 08/24/20 20:46 08/24/20 20:47 UNV 08/24/20 20:59 125 MG EKG/XRAY/CT/US XRAY Comments: No acute cardiopulmonary disease ER DEPART Departure Time of Disposition: 21:24 Disposition: 01 HOME, SELF-CARE Impression: Primary Impression: Asthma with status asthmaticus Condition: Improved Referrals: DILMA BRICEÑO MD (PCP) PRIMARY CARE PROVIDER Comments prednisone 60mg x 1, 40mg x 2, 20mg x2 and 10mg x 2d Duration or Time Spent with Pa: 20m YUNIOR GONZALEZ MD Aug 24, 2020 20:48
[2020-08-24] MEDS ORDERED: DUO 0.5-3(2.5) MG/3 ML IH ONE (20:50)
[2020-08-24] MEDS ORDERED: SOLU-MEDROL ONE (20:55)
--- NOTE | 2020-08-24 21:12 | DIREP ---
PROCEDURE:CHEST 1 VIEW COMPARISON:[facility], CR, XRAY CHEST 2 VWS, 06/11/2019, 10:12 AM. [facility], CR, XRAY CHEST SINGLE VW, 03/04/2019, 00:00 AM. INDICATIONS:asthma FINDINGS: LUNGS/PLEURA:No significant pulmonary parenchymal abnormalities. No effusions. Right basilar atelectasis. VASCULATURE:Normal. Unremarkable pulmonary vasculature. CARDIAC:Normal. No cardiac silhouette abnormality or cardiomegaly. MEDIASTINUM:Normal. No visible mass or adenopathy. BONES:Normal. No fracture or visible bony lesion. OTHER:Negative. CONCLUSION:No acute findings. Dictated by: Moshe Ruggiero MD on 08/24/2020 at 09:03 PM
--- NOTE | 2020-08-24 21:20 | NUR ---
DR GONZALEZ SPOKE WITH PT- DOES NOT WANT TO BE ADMITTED, INSTEAD WILL TRY DUONEBS Q3-4 HRS AT HOME AND TAKE ORDERED STEROIDS. PT VERY KNOWLEDGABLE ABOUT HER CHRONIC ASTHMA CONDITION AND AGREES TO COME BACK IF S/S WORSEN
== END 2020-08-24 21:45 | disposition home or self-care (01) ==
LOC: ER 20:21
DX: J45.902 Unspecified asthma with status asthmaticus (principal); Z79.1 Long term (current) use of non-steroidal anti-inflammatories (NSAID); Z79.52 Long term (current) use of systemic steroids; Z79.899 Other long term (current) drug therapy; Z88.5 Allergy status to narcotic agent; Z88.0 Allergy status to penicillin; Z88.8 Allergy status to other drugs, medicaments and biological substances
CPT/HCPCS: 71045; 94640; 96374; 99283; J2930; J7620

== ENCOUNTER 2021-03-21 07:29 | Emergency (ER) | payer OTHER ==
[~2021-03-21] VITALS: Ht 162.6 cm; Wt 72.6 kg
[2021-03-21 07:45] VITALS: BP 140/73
[2021-03-21 07:53] VITALS: BP 140/73
[2021-03-21] MEDS ORDERED: ROBAXIN PO STA (08:07)
[2021-03-21] MEDS ORDERED: TORADOL IV STA (08:07)
--- NOTE | 2021-03-21 08:17 | ER.PDOC ---
General Chief Complaint: Trunk Pain/Injury Stated Complaint: R RIB PAIN Time seen by MD: 08:01 Source: patient Exam Limitations: no limitations History of Present Illness Initial Comments Patient is a 35-year-old woman who presents to the emergency department with pain to her right lower Ribs and right upper abdomen after falling off a ladder last night.Patient states she was on a ladder caulking a shower when she misjudged the ladder and fell about 4 inches Onto the shower door.She reports pain over the lateral aspect of her right lower ribs radiating towards her back That is sharp, constant, worse with deep breath or movement.. She also has pain in her right upper quadrant region. She denies any shortness of breath but states her pain is worse when she takes deep breath. She denies any productive cough or fever. She denies any head injury, neck or back pain. She denies any injury to her extremities. She states she has been taking ibuprofen at home without relief of the pain. 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 Timing/Duration: other (Last night) Where: home Context: fall Location of pain/injury: chest Quality/Severity: moderate, sharpness Associated Symptoms: blow to head (None) Remembers: injury, coming to hospital Allergies: Coded Allergies: latex (Verified Allergy, Severe, WHEEZING, 02/09/19) amoxicillin (Verified Allergy, Unknown, 08/13/16) tramadol (Verified Allergy, Unknown, BURNING TO LIPS AND THROAT, 05/16/14) Home Meds Active Scripts Promethazine Hcl (PROMETHAZINE HCL) 25 Mg Tablet, 25 MG PO Q8HR PRN for vomiting for 5 Days, #15 TAB 0 Refills Prov:TRIMMIER,SARIKA A CLIP BAKER 07/23/19 Dicyclomine Hcl (BENTYL) 10 Mg/1 Ml Ampul, 10 MG IM TID PRN for DIARRHEA for 5 Days, #15 TABLET 0 Refills Prov:TRIMMIER,SARIKA A CLIP BAKER 07/23/19 Acetaminophen With Codeine (TYLENOL-COD #4 TABLET) 1 Each Tablet, 1 EACH PO TID PRN for PAIN, #20 TAB 0 Refills Prov:DILMA BRICEOÑ MD 10/29/16 Benzonatate (TESSALON PERLE) 100 Mg Capsule, 100 MG PO TID for COUGH, #15 CAP 0 Refills Prov:DILMA BRICEÑO MD 10/29/16 Prednisone (PREDNISONE) 20 Mg Tablet, 40 MG PO DAILY, #8 TAB 0 Refills Prov:DILMA BRICEÑO MD 10/29/16 Albuterol Sulfate (PROVENTIL HFA) 6.7 Gm Hfa.aer.ad, 2 PUFF IH Q6HR PRN for SHORTNESS OF BREATH, #1 INHALER 1 Refill Prov:DILMA BRICEÑO MD 10/29/16 Reported Medications Ibuprofen (IBUPROFEN) 800 Mg Tablet, 800 MG PO Q8HR, TABLET 05/16/14 Past Medical History Medical History: asthma Surgical History: Family History Significant Family History: no pertinent family hx Social History Smoking: non-smoker Alcohol Use: none Drug Use: none Review of Systems Constitutional: denies fever Eyes: denies pain Ears: denies pain Nose: denies pain Mouth: denies pain Throat: denies pain Respiratory: denies shortness of breath Cardiovascular: chest pain Gastrointestinal: abdominal pain; denies diarrhea, denies nausea, denies vomiting Genitourinary: denies hematuria Musculoskeletal: back pain; denies joint pain, denies joint swelling; muscle pain; denies neck pain Skin: denies rash Psychiatric/Neurological: denies anxiety All Other Systems: Reviewed and Negative Physical Exam General Appearance: No Apparent Distress, WD/WN Head: No Evidence of Injury Eyes: bilateral eye normal inspection, bilateral eye PERRL, bilateral eye EOMI Ears, Nose, Throat: Hearing Grossly Normal, No Evidence of ENT Injury, No D ental Injury Respiratory: normal breath sounds, no respiratory distress, crepitus (None), ecchymosis (None), flail chest (None), tenderness (Right lateral lower chest with no crepitance or deformities.) Cardiovascular/Chest: Normal Peripheral Pulses, Regular Rate, Rhythm, No Edema, No Gallop, No JVD, No Murmur Gastrointestinal: Normal Bowel Sounds, No Organomegaly, No Pulsatile Mass, Non Tender, Soft, Guarding, Rebound (None), Tenderness (Right upper quadrant) Back: Normal Inspection, No CVA Tenderness, No Vertebral Tenderness Extremities: No Evidence of Injury, Normal Range of Motion, Non-Tender, No Pedal Edema 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/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: 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 NML as Tested, No Motor/Sensory Deficits, Alert, Normal Mood/Affect, Oriented x 3 Skin: Normal Color, Warm/Dry Results/Orders Results/Orders Orders - SOCO PARK MD Cbc With Auto Diff (03/21/21 08:07) Comprehensive Metabolic Panel (03/21/21 08:07) Saline Lock (03/21/21 08:07) Ct Abd/Pel With Iv Contrast (03/21/21 09:38) Xr Chest 2v (03/21/21 08:07) Urinalysis (03/21/21 08:07) Hcg Urine (03/21/21 08:07) Ketorolac Tromethamine (Toradol) (03/21/21 08:07) Methocarbamol (Robaxin) (03/21/21 08:07) 0.9 % Sodium Chloride (Ns 100ml) (03/21/21 08:18) Ketorolac Tromethamine (Toradol) (03/21/21 08:18) Methocarbamol (Robaxin) (03/21/21 08:18) Vital Signs Date Time Temp Pulse Resp B/P (MAP) Pulse Ox O2 Delivery O2 Flow Rate FiO2 03/21/21 07:53 98.2 75 16 140/73 (95) 98 Room Air 03/21/21 07:45 98.2 75 16 98 03/21/21 07:45 98.2 75 16 Administered Medications Medications (Trade) Dose Ordered Sig/Tanisha Route PRN Reason Start Time Stop Time Status Last Admin Dose Admin Ketorolac Tromethamine (Toradol) 30 mg OT STAT IV 03/21/21 08:07 03/21/21 08:15 DC 03/21/21 08:28 30 MG Methocarbamol (Robaxin) 1,000 mg STAT STAT PO 03/21/21 08:07 03/21/21 08:15 DC 03/21/21 08:29 1,000 MG Laboratory Tests Test 03/21/21 08:25 03/21/21 08:42 White Blood Count 8.5 10^3/uL (4.5-11.0) Red Blood Count 4.38 10^6/uL (4.00-5.20) Hemoglobin 14.0 g/dL (12.0-15.0) Hematocrit 43.0 % (36.0-46.0) Mean Corpuscular Volume 98.2 fL (78-100) Mean Corpuscular Hemoglobin 32.0 pg (26-34) Mean Corpuscular Hemoglobin Concent 32.6 g/dL (33-36.5) L Red Cell Distribution Width 12.4 % (11.5-14.5) Platelet Count 219 10^3/uL (150-400) Mean Platelet Volume 10.6 fL (7.8-11.0) Neutrophils (%) (Auto) 59.2 % (41.0-85.0) Lymphocytes (%) (Auto) 28.4 % (24.0-44.0) Monocytes (%) (Auto) 7.0 % (5.0-12.0) Neutrophils # (Auto) 5.1 10^3/uL (1.8-7.7) Lymphocytes # (Auto) 2.42 10^3/uL1 (1.0-4.8) Monocytes # (Auto) 0.6 10^3/uL (0.3-0.8) Absolute Immature Granulocyte (auto 0.02 10^3 u/L (0-2) Absolute Eosinophils (auto) 0.4 10^3/uL (0.0-0.2) H Immature Granulocytes % 0.20 % (0.00-0.50) Eosinophils % 4.8 % (0.0-5.0) Basophils % 0.4 % (0.0-0.2) H Basophils # 0.0 10^3/uL (0.0-0.1) Sodium Level 140 mmol/L (132-145) Potassium Level 3.4 mmol/L (3.6-5.2) L Chloride Level 105.0 mmol/L (96-109) Carbon Dioxide Level 27.7 mmol/L (20.0-32) Anion Gap 10.7 Blood Urea Nitrogen 7 mg/dL (7-18) Creatinine 0.67 mg/dL (0.59-1.40) Estimated GFR () 122.7 (>/=60) Est GFR (CKD-EPI)(Non-Afr Cymro) 101.4 (>/=60) BUN/Creatinine Ratio 10.0 Glucose Level 94 mg/dL (70-110) Calcium Level 9.2 mg/dL (8.4-10.5) Total Bilirubin 0.6 mg/dL (0.2-1.0) Aspartate Amino Transferase (AST) 18 U/L (0-35) Alanine Aminotransferase (ALT) 26 U/L (12-78) Alkaline Phosphatase 80 U/L (50-136) Total Protein 7.9 g/dL (6.4-8.2) Albumin 4.1 g/dL (3.4-5.0) Globulin 3.8 Albumin/Globulin Ratio 1.078 Urine Collection Type RANDOM Urine Color STRAW Urine Appearance CLEAR Urine Bilirubin NEGATIVE (NEGATIVE) Urine Ketones NEGATIVE (NEGATIVE) Urine Specific [place] <=1.005 (1.005-1.030) Urine pH 6.5 (4.5-8.0) Urine Protein NEGATIVE (NEGATIVE) Urine Urobilinogen 0.2 E.U./dL (0.2) Urine Nitrate NEGATIVE (NEGATIVE) Urine Leukocyte Esterase NEGATIVE (NEGATIVE) Urine Glucose (Auto)(UA) NEGATIVE (NEGATIVE) Urine Blood NEGATIVE (NEGATIVE) Urine HCG, Qualitative NEGATIVE (NEGATIVE) Progress Progress CBC, CMP, UA were all normal. test was negative.Patient had an IV established and received ketorolac 30 mg IV with improvement in her pain.Patient had chest x-ray that showed no obvious rib fractures, no pneumothorax, no hemothorax per the radiologist. Patient had a CT of the abdomen and pelvis due to her right upper quadrant pain which was negative for acute traumatic injury per the radiologist. No other significant abnormalities by CT scan.I viewed the patient's images.Impression patient has right rib injury with no complications related to the injury at this time. She does not appear to have pneumothorax, hemothorax, aortic dissection, aortic aneurysm, flail chest, hemoperitoneum, liver laceration, kidney laceration, pneumoperitoneum, or other serious etiology of her symptoms. Patient will be discharged home. ER DEPART Departure Time of Disposition: 10:46 Disposition: 01 HOME / SELF CARE / HOMELESS Impression: Primary Impression: Rib pain Condition: Improved Referrals: DILMA BRICEÑO MD (PCP) PRIMARY CARE PROVIDER Additional Instructions: Thank you for your visit today and trusting us with your health care needs.Return immediately if severe pain, difficulty breathing, persistent vomiting, fever. Return immediately if severe pain, difficulty breathing, persistent vomiting, fever. Rest, cool compresses for 20 minutes 3 times a day. Then warm compresses.Ibuprofen 800 mg by mouth every 8 hours as needed for pain [id number]. Acetaminophen 1000 mg by mouth every 6 hours as needed for pain [id number]. Tylenol with codeine as needed for severe pain. Methocarbamol as needed for muscle spasm. Light duty work for 1 week. Follow- up with primary care physician in 1 week. Duration or Time Spent with Pa: 40 minutes Return to Work/School Can a patient return to work?: No (off work x 2 days. Light duty x 1 week.) SOCO PARK MD Mar 21, 2021 08:17
[2021-03-21] MEDS ORDERED: NS 100ML 100 ML IV ONE (08:18)
[2021-03-21] MEDS ORDERED: TORADOL ONE (08:18)
[2021-03-21] MEDS ORDERED: ROBAXIN ONE (08:18)
[2021-03-21 08:27] LABS: BASOPHIL % 0.4 % (0.0-0.2); EOSINOPHIL # 0.4 10^3/uL (0.0-0.2); EOSINOPHIL % 4.8 % (0.0-5.0); LYMPHOCYTES # 2.42 10^3/uL1 (1.0-4.8); LYMPHOCYTES % 28.4 % (24.0-44.0); MONOCYTES # 0.6 10^3/uL (0.3-0.8); NEUTROPHIL # 5.1 10^3/uL (1.8-7.7); NEUTROPHILS % 59.2 % (41.0-85.0); PLATELET COUNT 219 10^3/uL (150-400); RED CELL DISTRIBUTION WIDTH 12.4 % (11.5-14.5)
[2021-03-21 08:44] LABS: CALCIUM 9.2 mg/dL (8.4-10.5); CARBON DIOXIDE 27.7 mmol/L (20.0-32)
[2021-03-21 08:45] VITALS: BP 131/69
[2021-03-21 08:50] LABS: BILIRUBIN,URINE NEGATIVE (NEGATIVE)
[2021-03-21 08:51] LABS: UA COLOR STRAW; UROBILINOGEN,URINE 0.2 E.U./dL (0.2)
[2021-03-21 09:40] VITALS: BP 128/65
--- NOTE | 2021-03-21 09:46 | DIREP ---
PROCEDURE:CHEST 2 VIEWS COMPARISON:None. INDICATIONS:rib pain FINDINGS: LUNGS/PLEURA:No significant pulmonary parenchymal abnormalities. No effusions. VASCULATURE:Normal. Unremarkable pulmonary vasculature. CARDIAC:Normal. No cardiac silhouette abnormality or cardiomegaly. MEDIASTINUM:Normal. No visible mass or adenopathy. BONES:Normal. No fracture or visible bony lesion. OTHER:Negative. CONCLUSION:Normal examination. Dictated by: Geetha Willingham M.D. on 03/21/2021 at 09:44 AM
--- NOTE | 2021-03-21 10:02 | DIREP ---
PROCEDURE:CT ABD/PELVIS W/ CONTRAST TECHNIQUE: Multiple axial CT images of the abdomen pelvis were obtained with the use of intravenous contrast. Coronal and sagittal reformats performed. COMPARISON:None. INDICATIONS:abdominal pain FINDINGS: LOWER CHEST:The lung bases are clear. LIVER:Normal. BILIARY:Normal. PANCREAS:Normal. SPLEEN:Normal. URINARY TRACT:Small left renal cysts. No hydronephrosis or calculi. Ureters are normal. ADRENALS:Normal. AORTA/VASCULAR:Normal. RETROPERITONEUM:Normal. BOWEL/MESENTERY:Normal. Appendix is not well seen. No suspicious right lower quadrant stranding or adenopathy to suggest acute appendicitis. ABDOMINAL WALL:Normal. PELVIS:Heterogeneous appearance of uterus. Please correlate with phase of menstrual cycle. There is asymmetric prominence of the left pelvic vasculature. Please correlate clinically for pelvic congestion syndrome. There is mild free fluid at the pelvic cul-de-sac, likely physiologic. No suspicious adnexal lesions are seen. BONES:Normal. OTHER:Normal. CONCLUSION: No CT evidence of acute abdominal pelvic pathology. Asymmetric prominence left pelvic vasculature. Please correlate clinically for pelvic congestion syndrome. Dictated by: David Moran MD on 03/21/2021 at 09:48 AM
[2021-03-21 11:05] VITALS: BP 139/66
== END 2021-03-21 11:09 | disposition home or self-care (01) ==
LOC: ER 07:49
DX: R07.81 Pleurodynia (principal); J45.909 Unspecified asthma, uncomplicated; Z79.1 Long term (current) use of non-steroidal anti-inflammatories (NSAID); Z79.52 Long term (current) use of systemic steroids; Z79.899 Other long term (current) drug therapy; Z88.0 Allergy status to penicillin; Z88.5 Allergy status to narcotic agent; Z88.8 Allergy status to other drugs, medicaments and biological substances; W11.XXXA Fall on and from ladder, initial encounter; Y93.89 Activity, other specified; Y92.89 Other specified places as the place of occurrence of the external cause; Y99.8 Other external cause status
CPT/HCPCS: 36415; 71046; 74177; 80053; 81003; 81025; 85025; 96374; 99285; J1885; Q9965